=== PATIENT | female | born 1980 | race Two or more races ===

== ENCOUNTER 2017-10-08 13:04 | Emergency (ER) | payer MEDICAID, OTHER ==
[~2017-10-08] VITALS: Ht 170.2 cm; Wt 83.0 kg
[2017-10-08] MEDS ORDERED: BUPIVACAINE HCL/EPINEPHRINE/PF 0.5%/0.0005 10ML ONE (14:32)
[2017-10-08] MEDS ORDERED: NORMAL SALINE 0.9% 10 ML SYR ONE (14:33)
[2017-10-08] MEDS ORDERED: BACITRACIN 50,000 UNITS/VIAL ONE (14:33)
[2017-10-08] MEDS ORDERED: BACITRACIN ZINC 15GM TUBE TOP ONE (14:33)
[2017-10-08 14:39] VITALS: BP 148/92
== END 2017-10-08 16:25 | disposition home or self-care (01) ==
LOC: ER 14:16
DX: S42.402G Unspecified fracture of lower end of left humerus, subsequent encounter for fracture with delayed healing (principal); X58.XXXD Exposure to other specified factors, subsequent encounter
CPT/HCPCS: 81025; 99282; Z7610; A4216; J0171; J3490